=== PATIENT | female | born 1995 | race Caucasian/White ===

== ENCOUNTER 2018-05-30 20:37 | Emergency (ER) | payer OTHER ==
[~2018-05-30] VITALS: Ht 170.2 cm; Wt 59.0 kg
[~2018-05-30 20:37] MED LIST: BENADRYL25 MG PO; CIPROFLOXACIN500 M1 PO; CREAM FOR PSORIASIS; FLAGYL500 MG PO; IBUPROFEN 400400 M2 PO; KEFLEX500 MG PO; METHOTREXA; METHOTREXATE 22.5 MG; PREDNISONE50 MG PO; SUDAFED 12 HOU120 MG PO; TORADOL 10 MG T10 MG PO; TRAMADOL 50 MG50 MG PO; VICODIN 5-5001 EACH PO
[2018-05-30 21:39] LABS: URINE BILIRUBIN NEGATIVE (Negative); URINE BLOOD 2+ (Negative); URINE CLARITY CLEAR; URINE COLOR YELLOW; URINE GLUCOSE-RANDOM NEGATIVE (Negative); URINE KETONES NEGATIVE (Negative); URINE LEUKOCYTES-REFLEX TRACE (Negative); URINE NITRITE-REFLEX NEGATIVE (Negative); URINE PROTEIN NEGATIVE (Negative); URINE SPECIFIC GRAVITY <= 1.005 (1.005-1.030); URINE UROBILINOGEN 0.2 E.U./dl (0.2-1.0)
[2018-05-30 21:48] LABS: CASTS None Seen /LPF (None Seen); MUCUS None Seen strn/LPF (None Seen); SQUAMOUS 4-10 Moderate /LPF (0-3); URINE WBC-REFLEX 0-5 Rare /HPF (0-5)
[2018-05-30 21:49] LABS: BACTERIA-REFLEX 1-9 Few /HPF (None Seen); CRYSTALS None Seen /LPF (None Seen); URINE RBC 0-2 Rare /HPF (0-2)
[2018-05-30] MEDS ORDERED: BACTRIM DS TAB1 EACH PO (22:22)
[2018-05-30 22:48] VITALS: BP 119/65
== END 2018-05-30 22:58 | disposition home or self-care (01) ==
LOC: M.ERS 20:37
PROVIDERS: Emergency Medicine Emergency Medical Services
DX: N39.0 Urinary tract infection, site not specified (principal); F32.9 Major depressive disorder, single episode, unspecified; L40.9 Psoriasis, unspecified

== ENCOUNTER 2018-08-16 13:44 | Emergency (ER) | payer OTHER ==
[~2018-08-16] VITALS: Ht 170.2 cm; Wt 59.0 kg
[~2018-08-16 13:44] MED LIST changes: +BACTRIM DS TAB1 EACH PO
[2018-08-16 14:04] LABS: URINE BILIRUBIN NEGATIVE (Negative); URINE BLOOD 3+ (Negative); URINE CLARITY CLEAR; URINE COLOR YELLOW; URINE GLUCOSE-RANDOM NEGATIVE (Negative); URINE KETONES NEGATIVE (Negative); URINE LEUKOCYTES-REFLEX TRACE (Negative); URINE NITRITE-REFLEX NEGATIVE (Negative); URINE PROTEIN 1+ (Negative); URINE SPECIFIC GRAVITY >= 1.030 (1.005-1.030)
[2018-08-16 14:12] LABS: SQUAMOUS >10 Many /LPF (0-3)
[2018-08-16 14:13] LABS: BACTERIA-REFLEX None Seen /HPF (None Seen); CASTS None Seen /LPF (None Seen); CRYSTALS None Seen /LPF (None Seen); URINE RBC 3-10 Few /HPF (0-2); URINE WBC-REFLEX 0-5 Rare /HPF (0-5)
[2018-08-16 14:34] LABS: ABSOLUTE EOSINOPHILS 0.1 thou/uL (0.0-0.7); ABSOLUTE LYMPHOCYTES 1.7 thou/uL (0.8-5.3); ABSOLUTE MONOCYTES 0.5 thou/uL (0.0-1.2); ABSOLUTE NEUTROPHILS 3.8 thou/uL (1.6-8.1); BASOPHILS 0.7 %; EOSINOPHILS 1.1 %; HEMATOCRIT 39.6 % (37.0-47.0); HEMOGLOBIN 13.6 gm/dL (12.0-15.0); LYMPHOCYTES 27.5 %; MCH 34.3 pg (26.0-34.0); MCHC 34.5 g/dL (28.0-37.0); MCV 99.5 fL (80.0-100.0); MPV 8.8 fl. (7.2-11.1); NUCLEATED RBCS 0 /100WBC; PLATELET COUNT* 176 thou/uL (150-400); POLYS 62.7 %; RBC 3.98 mil/uL (4.20-5.00); WBC 6.1 thou/uL (4.0-11.0)
[2018-08-16 14:41] LABS: CALCIUM 8.8 mg/dL (8.5-10.1); CREATININE 0.6 mg/dL (0.6-1.3); POTASSIUM 3.4 mmol/L (3.5-5.1)
[2018-08-16 14:46] LABS: ALBUMIN 3.9 g/dL (3.4-5.0); TOTAL BILIRUBIN 1.6 mg/dL (<0.1-1.0)
[2018-08-16 16:41] VITALS: BP 117/71
== END 2018-08-16 16:41 | disposition home or self-care (01) ==
LOC: M.ERS 13:44
PROVIDERS: Nurse Practitioner Family
DX: O20.0 Threatened abortion (principal); L40.9 Psoriasis, unspecified; F32.9 Major depressive disorder, single episode, unspecified; Z3A.01 Less than 8 weeks gestation of pregnancy

== ENCOUNTER 2021-03-06 12:46 | Emergency (ER) | payer MEDICAID ==
[~2021-03-06] VITALS: Ht 170.2 cm; Wt 54.4 kg
[2021-03-06] MEDS ORDERED: MOBIC7.5 MG PO (14:12)
[2021-03-06 14:23] VITALS: BP 105/66
== END 2021-03-06 14:24 | disposition home or self-care (01) ==
LOC: M.ERS 12:46
DX: S62.615A Displaced fracture of proximal phalanx of left ring finger, initial encounter for closed fracture (principal); F32.9 Major depressive disorder, single episode, unspecified; X58.XXXA Exposure to other specified factors, initial encounter; Y93.9 Activity, unspecified; Y92.89 Other specified places as the place of occurrence of the external cause; Y99.8 Other external cause status